=== PATIENT | female | born 1945 | race Caucasian/White ===

== ENCOUNTER → 2016-12-21 | Outpatient (CLI) | payer MEDICARE ==
--- NOTE | 2016-12-21 10:37 | WOMENS IMAGING REPORT ---
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 Additio nal selected color Doppler and spectral images recorded. LIMITATIONS: Midline bowel gas, large body habitus FINDINGS: PANCREAS: Not well visualized LIVER: Normal size, very difficult to penetrate with the ultrasound energy from fatty infiltration of the liver. LIVER VASCULATURE: Normal directional flow of the main portal vein and hepatic veins. GALLBLADDER: Distended. No gallstones. No gallbladder wall thickening or pericholecystic fluid. ULTRASOUND-DETECTED AHUJA'S SIGN: Negative. INTRAHEPATIC DUCTS AND COMMON DUCT: No intrahepatic biliary ductal dilatation. Common hepatic duct 2 .4 mm in diameter. Common bile duct difficult to visualize due to upper abdominal bowel gas. INFERIOR VENA CAVA: Hepatic vena cava difficult to visualize due to fatty infiltration of the liver AORTA: Not visualized RIGHT KIDNEY: 10 cm in length. No gross hydronephrosis PERITONEAL AND RIGHT PLEURAL SPACE: No ascites or effusions. OTHER: No other significant findings. IMPRESSION: Fatty infiltration of the liver. No gallstones TECHNICAL DOCUMENTATION: JOB ID: [id number] [employer]- All Rights Reserved
== END ==
LOC: WI 08:32
PROVIDERS: ATTEND Internal Medicine Gastroenterology
DX: K76.0 Fatty (change of) liver, not elsewhere classified (principal); R94.5 Abnormal results of liver function studies; Z79.899 Other long term (current) drug therapy
CPT/HCPCS: 76705

== ENCOUNTER 2017-06-04 09:48 | Inpatient (IN) | payer MEDICARE ==
--- NOTE | 2017-06-04 10:32 | ER Document Report ---
ED Medical Screen (RME) - General Mode of Arrival: Ambulatory Information source: Patient TRAVEL OUTSIDE OF THE [place] IN LAST 30 DAYS: No <MYRIAM SCHNEIDER - Last Filed: 06/04/17 10:42> <FOSTER JOHNSON - Last Filed: 06/04/17 13:20> <TARIQSHAUNA Anders - Last Filed: 06/04/17 20:09> - General Chief Complaint: Fall Injury Stated Complaint: FALL/LEFT ELBOW PAIN Time Seen by Provider: 06/04/17 10:22 Notes: Patient is a 71 year old female presenting to emergency department complaining of left sided head pain and left elbow pain after a mechanical fall onset this morning. Patient states she slipped and hit her head and elbow. Son states that the patient did not remember how she got to the emergency department. At bedside patient was alert and oriented x3, although son describes her behaviour as "loopy'. Patient denies any neck injury. I have greeted and performed a rapid initial assessment of this patient. A comprehensive ED assessment and evaluation of the patient, analysis of test results and completion of the medical decision making process will be conducted by additional ED providers. (MYRIAM SCHNEIDER) - Related Data Allergies/Adverse Reactions: amoxicillin [Amoxicillin] Allergy (Intermediate, Verified 06/04/17 09:52) nausea and vomiting iodine [Iodine] Allergy (Mild, Verified 06/04/17 09:52) rash Sulfa (Sulfonamide Antibiotics) Allergy (Mild, Verified 06/04/17 09:52) rash amlodipine besylate [From Norvasc] Allergy (Verified 06/04/17 09:52) unsure cefadroxil hydrate [From Duricef] Allergy (Verified 06/04/17 09:52) unsure doxycycline calcium [From Vibramycin] Allergy (Verified 06/04/17 09:52) unsure doxycycline hyclate [From Vibramycin] Allergy (Verified 06/04/17 09:52) unsure doxycycline monohydrate [From Vibramycin] Allergy (Verified 06/04/17 09:52) unsure hydrochlorothiazide [Hydrochlorothiazide] Allergy (Verified 06/04/17 09:52) unsure morphine [Morphine] Allergy (Verified 06/04/17 09:52) triamterene [From Dyazide] Allergy (Verified 06/04/17 09:52) unsure Past Medical History - Social History Chew tobacco use (# tins/day): No Frequency of alcohol use: Rare Drug Abuse: None - Past Medical History Cardiac Medical History: Reports: Hx Hypertension - CONTROLLED Denies: Hx Coronary Artery Disease, Hx Heart Attack Pulmonary Medical History: Reports: Hx Bronchitis Denies: Hx Asthma, Hx COPD, Hx Pneumonia Neurological Medical History: Denies: Hx Cerebrovascular Accident, Hx Seizures Endocrine Medical History: Denies: Hx Diabetes Mellitus Type 2 - Prediabetic Renal/ Medical History: Denies: Hx Peritoneal Dialysis GI Medical History: Denies: Hx Hepatitis, Hx Hiatal Hernia, Hx Ulcer Musculoskeltal Medical History: Reports Hx Arthritis Skin Medical History: Reports Hx Psoriasis Infectious Medical History: Denies: Hx Hepatitis Past Surgical History: Reports: Hx Hysterectomy. Denies: Hx Mastectomy, Hx Open Heart Surgery, Hx Pacemaker - Immunizations Hx Diphtheria, Pertussis, Tetanus Vaccination: No <MYRIAM SCHNEIDER - Last Filed: 06/04/17 10:42> - Social History Family history: None <SHAUNA POTTER - Last Filed: 06/04/17 20:09> Physical Exam <MYRIAM SCHNEIDER - Last Filed: 06/04/17 10:42> <FOSTER JOHNSON - Last Filed: 06/04/17 13:20> <SHAUNA POTTER - Last Filed: 06/04/17 20:09> - Vital signs Vitals: Temp Pulse Resp BP Pulse Ox 97.6 F 58 L 16 100/55 L 87 L 06/04/17 09:59 06/04/17 09:59 06/04/17 09:59 06/04/17 09:59 06/04/17 09:59 - Notes Notes: GENERAL: Alert, interacts well. No acute distress. HEAD: Swelling to the lateral aspect of the left side of the face which is also tender to palpation. EYES: Pupils equal, round, and reactive to light. Extraocular movements intact. ENT: Oral mucosa moist, tongue midline. NECK: Full range of motion. Supple. Trachea midline. LUNGS: Clear to auscultation bilaterally, no wheezes, rales, or rhonchi. No respiratory distress. HEART: Regular rate and rhythm. No murmurs, gallops, or rubs. ABDOMEN: Soft, non-tender. Non-distended. Bowel sounds present in all 4 quadrants. EXTREMITIES: Moves all 4 extremities spontaneously. tender to palpation to the left side of the elbow, soft tissue swelling. Able to move and lift BLE. NEUROLOGICAL: Alert and oriented x3. Normal speech. PSYCH: Normal affect, normal mood. SKIN: Warm, dry, normal turgor. No rashes or lesions noted. (MYRIAM SCHNEIDER) Course - Laboratory Result Diagrams: 06/04/17 12:13 06/04/17 12:13 - EKG Interpretation by Fl EKG shows normal: Sinus rhythm, [place], Intervals, QRS Complexes, ST-T Waves <FOSTER JOHNSON - Last Filed: 06/04/17 13:20> - Laboratory Result Diagrams: 06/04/17 12:13 06/04/17 12:13 <SHAUNA POTTER - Last Filed: 06/04/17 20:09> - Vital Signs Vital signs: Temp Pulse Resp BP Pulse Ox 97.8 F 82 16 147/82 H 98 06/04/17 17:49 06/04/17 17:49 06/04/17 17:49 06/04/17 17:49 06/04/17 17:49 - Laboratory Laboratory results interpreted by il: 06/04/17 06/04/17 06/04/17 12:13 12:13 12:17 RDW 16.3 H Seg Neutrophils % 82.7 H Lymphocytes % 11.1 L Chloride 108 H Est GFR (Non-Af Amer) 50 L Glucose 120 H Direct Bilirubin 0.5 H Urine Nitrite POSITIVE H Urine Urobilinogen 2.0 H Ur Leukocyte Esterase MODERATE H Doctor's Discharge <MYRIAM SCHNEIDER - Last Filed: 06/04/17 10:42> <FOSTER JOHNSON - Last Filed: 06/04/17 13:20> <SHAUNA POTTER - Last Filed: 06/04/17 20:09> - Discharge Clinical Impression: Fracture of left proximal ulna Qualifiers: Encounter type: initial encounter Fracture type: closed Fracture morphology: other fracture Qualified Code(s): S52.092A - Other fracture of upper end of left ulna, initial encounter for closed fracture Closed fracture of left proximal radius Qualifiers: Encounter type: initial encounter Fracture morphology: other fracture Qualified Code(s): S52.182A - Other fracture of upper end of left radius, initial encounter for closed fracture Closed head injury with concussion Qualifiers: Encounter type: initial encounter Loss of consciousness presence/duration: without LOC Qualified Code(s): S06.0X0A - Concussion without loss of consciousness, initial encounter Facial contusion Qualifiers: Encounter type: initial encounter Qualified Code(s): S00.83XA - Contusion of other part of head, initial encounter Condition: Good Disposition: ADMITTED INPATIENT Scribe Documentation - Scribe Written by Scribe:: Heena Valenzuela, 06/04/2017 10:41 acting as scribe for :: Long <MYRIAM SCHNEIDER - Last Filed: 06/04/17 10:42>
--- NOTE | 2017-06-04 11:04 | ER Document Report ---
ED Fall - General Chief Complaint: Fall Injury Stated Complaint: FALL/LEFT ELBOW PAIN Time Seen by Provider: 06/04/17 10:22 Mode of Arrival: Ambulatory Information source: Patient Notes: 71-year-old female to the emergency department status post fall. States that she was walking outside and slipped on the wet ground. Landed on her left side. Landed primarily on her left elbow but also hit her head. Was dazed and confused according to son. Has persistent nausea and vomiting at this time. Complaining of severe pain in the left elbow. Unable to move her left elbow. Denies any any pain in the neck, chest, back, hip. Denies syncopal episode states that she simply tripped and fell. TRAVEL OUTSIDE OF THE [place] IN LAST 30 DAYS: No - HPI Occurred: Just prior to arrival Where: Home Context: Tripped Associated symptoms: Dazed/confused - Related data Allergies/Adverse Reactions: amoxicillin [Amoxicillin] Allergy (Intermediate, Verified 06/04/17 09:52) nausea and vomiting iodine [Iodine] Allergy (Mild, Verified 06/04/17 09:52) rash Sulfa (Sulfonamide Antibiotics) Allergy (Mild, Verified 06/04/17 09:52) rash amlodipine besylate [From Norvasc] Allergy (Verified 06/04/17 09:52) unsure cefadroxil hydrate [From Duricef] Allergy (Verified 06/04/17 09:52) unsure doxycycline calcium [From Vibramycin] Allergy (Verified 06/04/17 09:52) unsure doxycycline hyclate [From Vibramycin] Allergy (Verified 06/04/17 09:52) unsure doxycycline monohydrate [From Vibramycin] Allergy (Verified 06/04/17 09:52) unsure hydrochlorothiazide [Hydrochlorothiazide] Allergy (Verified 06/04/17 09:52) unsure morphine [Morphine] Allergy (Verified 06/04/17 09:52) triamterene [From Dyazide] Allergy (Verified 06/04/17 09:52) unsure Past Medical History - General Information source: Patient - Social History Smoking Status: Former Smoker Chew tobacco use (# tins/day): No Frequency of alcohol use: Rare Drug Abuse: None Lives with: Family Family History: Reviewed & Not Pertinent Patient has suicidal ideation: No Patient has homicidal ideation: No - Past Medical History Cardiac Medical History: Reports: Hx Hypertension - CONTROLLED Denies: Hx Coronary Artery Disease, Hx Heart Attack Pulmonary Medical History: Reports: Hx Bronchitis Denies: Hx Asthma, Hx COPD, Hx Pneumonia Neurological Medical History: Denies: Hx Cerebrovascular Accident, Hx Seizures Endocrine Medical History: Denies: Hx Diabetes Mellitus Type 2 - Prediabetic Renal/ Medical History: Denies: Hx Peritoneal Dialysis GI Medical History: Denies: Hx Hepatitis, Hx Hiatal Hernia, Hx Ulcer Musculoskeltal Medical History: Reports Hx Arthritis Skin Medical History: Reports Hx Psoriasis Infectious Medical History: Denies: Hx Hepatitis Past Surgical History: Reports: Hx Hysterectomy. Denies: Hx Mastectomy, Hx Open Heart Surgery, Hx Pacemaker - Immunizations Hx Diphtheria, Pertussis, Tetanus Vaccination: No Review of Systems - Review of Systems Notes: Review of Systems Constitutional: denies: Chills, Diaphoresis, Fever, Malaise, Weakness. Remarkable for nausea EENT: Remarkable for pain on the left side of the face. Denies: Eye discharge , Blurred vision, Tearing, Double vision, Nose congestion, Nose discharge, Throat swelling, Mouth pain Cardiovascular: denies: Palpitations, Heart racing, Orthopnea, Dyspnea. denies : Chest pain Respiratory: denies: Cough, Hurts to breathe, Wheezing, Shortness of breath Gastrointestinal: denies: Abdominal pain, Diarrhea, Nausea, Vomiting, Black stools Genitourinary: denies: Burning, Dysuria, Discharge, Frequency, Flank pain, Hematuria Musculoskeletal: Remarkable for pain in the left elbow. Denies any hip pain, back pain or neck pain at this time. Hematologic/Lymphatic: denies: Anemia, Easy bleeding, Easy bruising, Blood clots Neurological/Psychological: Remarkable for confusion and nausea denies: Dementia, Depression, Lost consciousness Physical Exam - Vital signs Interpretation: Normal - General General appearance: Appears well, Alert - HEENT Head: Normocephalic, there are contusions noted to the left zygomatic arch with small abrasion. Eyes: Normal Pupils: PERRL - Respiratory Respiratory status: No respiratory distress Chest status: Nontender Breath sounds: Clear, no wheeze or rhonchi or rales Chest palpation: Normal - Cardiovascular Rhythm: Regular Heart sounds: Normal auscultation - The exception of occasional PVC. Murmur: No - Abdominal Inspection: Normal Distension: No distension Bowel sounds: Normal Tenderness: Nontender Organomegaly: No organomegaly - Back Back: Normal, Nontender but no obvious step-offs. - Extremities General upper extremity: The left upper extremity is remarkable for severe pain in the left elbow with bruising noted to the left elbow. Unable to range the elbow due to pain. Radius and ulnar pulses are intact. General lower extremity: Normal inspection, Nontender, Normal color, Normal ROM , Normal temperature, Normal weight bearing. No: Dionicio's sign - Neurological Neuro grossly intact: Yes Cognition: Normal Orientation: AAOx4 [place] Coma Scale Eye Opening: Spontaneous [place] Coma Scale Verbal: Oriented [place] Coma Scale Motor: Obeys Commands [place] Coma Scale Total: 15 Speech: Normal Motor strength normal: LUE, RUE, LLE, RLE Sensory: Normal - Psychological Associated symptoms: Normal affect, Normal mood - Skin Skin Temperature: Warm Skin Moisture: Dry Skin Color: Normal. Skin is remarkable for small abrasion noted to the left face under the zygomatic arch. Physical Exam - Vital signs Vitals: Temp Pulse Resp BP Pulse Ox 97.6 F 58 L 16 100/55 L 87 L 06/04/17 09:59 06/04/17 09:59 06/04/17 09:59 06/04/17 09:59 06/04/17 09:59 Course - Re-evaluation Re-evalutation: 06/04/17 12:04 CT of the head, face, cervical spine unremarkable for acute injury. X-rays of the left elbow reveal comminuted displaced proximal ulna fracture with radial head fracture as well. Significant amount of swelling. Pain is significant. Will consult with Dr. Blake Terry with orthopedic surgery as this is likely require more urgent intervention. 06/04/17 12:11 A message was left on Dr. Terry's cell phone as he is in the OR at this time. Message left at 11:55 AM. 06/04/17 12:[address] 06/04/17 10:26 IMPRESSION: CHRONIC DEGENERATIVE CHANGES. NO ACUTE FINDINGS. Elbow X-Ray 06/04/17 10:26 IMPRESSION: Somewhat limited study as noted above. Fractures of the proximal ulna and radius as noted above. Other findings as noted above Facial Bones CT 06/04/17 10:26 IMPRESSION: NO ACUTE FINDINGS. Head CT 06/04/17 10:26 IMPRESSION: MILD CHRONIC CHANGES OF ATROPHY AND MICROVASCULAR ISCHEMIA. NO ACUTE PROCESS. EVIDENCE OF ACUTE STROKE: NO. 06/04/17 13:[address] Blake Terry with orthopedic surgery. Will admit to his service at this time. Will place in a long splint. Get CT scan of the elbow and admit. 06/04/17 13:12 Long-arm splint placed. Upper extremity reevaluated status post splint placement. Neurovascularly intact. No complications. Patient tolerated procedure well. Will admit at this time for definitive treatment with orthopedic surgery - Vital Signs Vital signs: Temp Pulse Resp BP Pulse Ox 97.6 F 58 L 16 100/55 L 87 L 06/04/17 09:59 06/04/17 09:59 06/04/17 09:59 06/04/17 09:59 06/04/17 09:59 - Laboratory Result Diagrams: 06/04/17 12:13 06/04/17 12:13 Laboratory results interpreted by me: 06/04/17 06/04/17 06/04/17 12:13 12:13 12:17 RDW 16.3 H Seg Neutrophils % 82.7 H Lymphocytes % 11.1 L Chloride 108 H Est GFR (Non-Af Amer) 50 L Glucose 120 H Direct Bilirubin 0.5 H Urine Nitrite POSITIVE H Urine Urobilinogen 2.0 H Ur Leukocyte Esterase MODERATE H - EKG Interpretation by [place] EKG shows normal: Sinus rhythm, [place], Intervals, QRS Complexes, ST-T Waves Discharge - Discharge Clinical Impression: Fracture of left proximal ulna Qualifiers: Encounter type: initial encounter Fracture type: closed Fracture morphology: other fracture Qualified Code(s): S52.092A - Other fracture of upper end of left ulna, initial encounter for closed fracture Closed fracture of left proximal radius Qualifiers: Encounter type: initial encounter Fracture morphology: other fracture Qualified Code(s): S52.182A - Other fracture of upper end of left radius, initial encounter for closed fracture Closed head injury with concussion Qualifiers: Encounter type: initial encounter Loss of consciousness presence/duration: without LOC Qualified Code(s): S06.0X0A - Concussion without loss of consciousness, initial encounter Facial contusion Qualifiers: Encounter type: initial encounter Qualified Code(s): S00.83XA - Contusion of other part of head, initial encounter Condition: Good Disposition: ADMITTED INPATIENT Admitting Provider: Garland Terry Unit Admitted: Surgical Floor Referrals: SHAKILA RUBIN MD [Primary Care Provider] - Follow up as needed
[2017-06-04] MEDS ORDERED: ONDANSETRON HCL INJ/PF 4 MG/2 ML SDV IV ONE ×2 (11:16→13:42)
[2017-06-04] MEDS ORDERED: FENTANYL CITRATE INJ/PF 100 MCG/2 ML AMPUL IV PRN (11:17)
--- NOTE | 2017-06-04 11:18 | RADIOLOGY REPORT (SQ) ---
EXAM DESCRIPTION: CT HEAD WITHOUT COMPLETED DATE/TIME: 06/04/2017 10:55 am REASON FOR STUDY: fall COMPARISON: None. TECHNIQUE: Axial images acquired through the brain without intravenous contrast. Images reviewed wi th bone, brain and subdural windows. Images stored on PACS. All CT scanners at this facility use dose modulation, iterative reconstruction, and/or weight based d osing when appropriate to reduce radiation dose to as low as reasonably achievable (ALARA). [facility]: Dose Right [facility]: CareDose [facility]: Dose Right [facility]: Teradose 4D [facility]: Cell [employer] RADIATION DOSE: CT Rad equipment meets quality standard of care and radiation dose reduction techniq ues were employed. CTDIvol: 61.6 mGy. DLP: 1163 mGy-cm. mGy. LIMITATIONS: None. FINDINGS: VENTRICLES: Prominent. CEREBRUM: No masses. No hemorrhage. No midline shift. Areas of low density in the white matter mos t likely due to chronic micro-vascular ischemic change. No evidence for acute infarction. CEREBELLUM: No masses. No hemorrhage. No alteration of density. No evidence for acute infarction. EXTRAAXIAL SPACES: Mild age-related involutional change. No fluid collections. No masses. ORBITS AND GLOBE: No intra- or extraconal masses. Normal contour of globe without masses. CALVARIUM: No fracture. PARANASAL SINUSES: No fluid or mucosal thickening. SOFT TISSUES: No mass or hematoma. OTHER: No other significant finding. IMPRESSION: MILD CHRONIC CHANGES OF ATROPHY AND MICROVASCULAR ISCHEMIA. NO ACUTE PROCESS. EVIDENCE OF ACUTE STROKE: NO. TECHNICAL DOCUMENTATION: JOB ID: [id number] Quality ID # [id number]: Final reports with documentation of one or more dose reduction techniques (e.g., Au tomated exposure control, adjustment of the mA and/or kV according to patient size, use of iterative reconstruction technique) 2010 [employer]- All Rights Reserved
[2017-06-04] MEDS ORDERED: HYDROMORPHONE HCL INJ/PF 2 MG/ML AMPULE IV ONE ×2 (11:29→13:19)
--- NOTE | 2017-06-04 11:41 | RADIOLOGY REPORT (SQ) ---
EXAM DESCRIPTION: CT CERVICAL SPINE WITHOUT COMPLETED DATE/TIME: 06/04/2017 10:55 am REASON FOR STUDY: fall COMPARISON: None. TECHNIQUE: Axial images acquired through the cervical spine without intravenous contrast. Images re viewed with lung, soft tissue and bone windows. Reconstructed coronal and sagittal MPR images review ed. Images stored on PACS. All CT scanners at this facility use dose modulation, iterative reconstruction, and/or weight based d osing when appropriate to reduce radiation dose to as low as reasonably achievable (ALARA). [facility]: Dose Right [facility]: CareDose [facility]: Dose Right [facility]: Teradose 4D [facility]: Smart SpotRight RADIATION DOSE: CT Rad equipment meets quality standard of care and radiation dose reduction techniq ues were employed. CTDIvol: 25.1 mGy. DLP: 489 mGy-cm. mGy. LIMITATIONS: None. FINDINGS: ALIGNMENT: Anatomic. MINERALIZATION: Normal. VERTEBRAL BODIES: No fractures or dislocation. DISCS: Multilevel disc space narrowing with osteophytes. FACETS, LATERAL MASSES, POSTERIOR ELEMENTS: Facet arthropathy. No fractures. No dislocation. No ac tule river findings. HARDWARE: None in the spine. VISUALIZED RIBS: No fractures. LUNG APICES AND SOFT TISSUES: No significant or acute findings. OTHER: No other significant finding. IMPRESSION: CHRONIC DEGENERATIVE CHANGES. NO ACUTE FINDINGS. TECHNICAL DOCUMENTATION: JOB ID: [id number] Quality ID # [id number]: Final reports with documentation of one or more dose reduction techniques (e.g., Au tomated exposure control, adjustment of the mA and/or kV according to patient size, use of iterative reconstruction technique) 2010 [employer]- All Rights Reserved
--- NOTE | 2017-06-04 11:42 | RADIOLOGY REPORT (SQ) ---
EXAM DESCRIPTION: CT FACIAL AREA WITHOUT COMPLETED DATE/TIME: 06/04/2017 10:55 am REASON FOR STUDY: fall COMPARISON: None. TECHNIQUE: Noncontrasted images through the facial bones and orbits windowed for bone and soft tissu e. Additional coronal and sagittal reconstructed images reviewed. All images stored on PACS. All CT scanners at this facility use dose modulation, iterative reconstruction, and/or weight based d osing when appropriate to reduce radiation dose to as low as reasonably achievable (ALARA). [facility]: Dose Right [facility]: CareDose [facility]: Dose Right [facility]: Teradose 4D [facility]: [employer] RADIATION DOSE: CT Rad equipment meets quality standard of care and radiation dose reduction techniq ues were employed. CTDIvol: 30.4 mGy. DLP: 566 mGy-cm. mGy. LIMITATIONS: None. FINDINGS: FACIAL BONES: No fracture or bone lesion. ORBITS: Intact. No fracture. Symmetric intact globes and retroorbital soft tissues. PARANASAL SINUSES: Nasal septal deviation to the right. Clear. No significant mucosal thickening, mass or fluid. No nasal polyps. Maxillary sinus outlets are patent. SOFT TISSUES: No mass or edema. INFERIOR BRAIN: Limited view. No acute findings. OTHER: Hyperostosis frontalis interna. IMPRESSION: NO ACUTE FINDINGS. TECHNICAL DOCUMENTATION: JOB ID: [id number] Quality ID # [id number]: Final reports with documentation of one or more dose reduction techniques (e.g., Au tomated exposure control, adjustment of the mA and/or kV according to patient size, use of iterative reconstruction technique) 2010 [employer]- All Rights Reserved
[2017-06-04] MEDS ORDERED: OXYCODONE-ACETAMINOPHEN 5-325 MG TABLET PO ONE (11:49)
--- NOTE | 2017-06-04 12:17 | RADIOLOGY REPORT (SQ) ---
EXAM DESCRIPTION: ELBOW LEFT AP/LATERAL COMPLETED DATE/TIME: 06/04/2017 11:58 am REASON FOR STUDY: fall COMPARISON: None. NUMBER OF VIEWS: One view TECHNIQUE: Lateral radiographic images acquired of the left elbow. LIMITATIONS: Study is limited due to the patient's condition. FINDINGS: MINERALIZATION: Normal. BONES: There is a transverse fracture of the proximal radius at a comminuted fracture of the proximal ulna. JOINT: Joint effusion is identified. SOFT TISSUES: Soft tissue swelling is identified. OTHER: No other significant finding. IMPRESSION: Somewhat limited study as noted above. Fractures of the proximal ulna and radius as not ed above. Other findings as noted above TECHNICAL DOCUMENTATION: JOB ID: [id number] [employer]- All Rights Reserved
[2017-06-04 12:22] LABS: ABSOLUTE EOSINOPHILS # (AUTO) 0.1 10^3/uL (0.0-0.6); ABSOLUTE LYMPHOCYTES (AUTO) 0.9 10^3/uL (0.5-4.7); ABSOLUTE MONOCYTES (AUTO) 0.4 10^3/uL (0.1-1.4); ABSOLUTE NEUT (AUTO) 6.9 10^3/uL (1.7-8.2); BASOPHILS % (AUTO) 0.5 % (0-2); EOSINOPHILS % (AUTO) 1.4 % (0-6); HEMATOCRIT 37.4 % (36.0-47.0); HEMOGLOBIN 12.2 g/dL (12.0-15.5); LYMPHOCYTES % (AUTO) 11.1 % (13-45); MEAN CORPUSCULAR HEMOGLOBIN 29.9 pg (27.0-33.4); MEAN CORPUSCULAR HGB CONC 32.7 g/dL (32.0-36.0); MEAN CORPUSCULAR VOLUME 92 fl (80-97); MONOCYTES % (AUTO) 4.3 % (3-13); PLATELET COUNT 322 10^3/uL (150-450); RED BLOOD COUNT 4.08 10^6/uL (3.72-5.28); RED CELL DISTRIBUTION WIDTH 16.3 % (11.5-14.0); SEGMENTED NEUTROPHILS % (AUTO) 82.7 % (42-78); TOTAL CELLS COUNTED % (AUTO) 100 %; WHITE BLOOD COUNT 8.3 10^3/uL (4.0-10.5)
[2017-06-04 12:27] LABS: INTERNATIONAL RATION (INR) 0.89; PROTHROMBIN TIME 12.7 SEC (11.4-15.4)
[2017-06-04 12:28] LABS: PARTIAL THROMBOPLASTIN TIME 27.8 SEC (23.5-35.8)
[2017-06-04 12:41] LABS: ALANINE AMINOTRANSFERASE 35 U/L (9-52); ALBUMIN 4.1 g/dL (3.5-5.0); ALKALINE PHOSPHATASE 110 U/L (38-126); ANION GAP 6 (5-19); ASPARTATE AMINO TRANSFERASE 24 U/L (14-36); BILIRUBIN,DIRECT 0.5 mg/dL (0.0-0.4); BILIRUBIN,TOTAL 0.6 mg/dL (0.2-1.3); BLOOD UREA NITROGEN 20 mg/dL (7-20); CALCIUM 10.1 mg/dL (8.4-10.2); CARBON DIOXIDE 28 mmol/L (22-30); CHLORIDE 108 mmol/L (98-107); GLUCOSE 120 mg/dL (75-110); POTASSIUM 4.5 mmol/L (3.6-5.0); SODIUM 141.6 mmol/L (137-145); TOTAL PROTEIN 6.6 g/dL (6.3-8.2)
[2017-06-04] MEDS ORDERED: DEXTROSE 5%-1/2 NORMAL SALINE 1,000 ML IV ONE (12:48)
[2017-06-04 12:49] LABS: APPEARANCE,URINE SLIGHTLY-CLOUDY; BILIRUBIN,URINE NEGATIVE (NEGATIVE); COLOR,URINE YELLOW; GLUCOSE, URINE NEGATIVE (NEGATIVE); KETONES,URINE NEGATIVE (NEGATIVE); LEUKOCYTE ESTERASE,URINE MODERATE (NEGATIVE); NITRITE,URINE POSITIVE (NEGATIVE); PROTEIN,URINE NEGATIVE (NEGATIVE)
--- NOTE | 2017-06-04 13:00 | EKG REPORT ---
SEVERITY:- NORMAL ECG - SINUS RHYTHM : Confirmed by: Jayce Cordova MD 04-Jun-2017 13:00:23
[2017-06-04] MEDS ORDERED: ONDANSETRON HCL INJ/PF 4 MG/2 ML SDV ONE (13:43)
--- NOTE | 2017-06-04 14:58 | RADIOLOGY REPORT (SQ) ---
EXAM DESCRIPTION: CT LT UPPER EXTREMITY WITHOUT COMPLETED DATE/TIME: 06/04/2017 1:54 pm REASON FOR STUDY: Left elbow fracture COMPARISON: Left elbow plain films 06/04/2017 TECHNIQUE: Axial imaging performed through the left elbow with reformatted coronal and sagittal imag ing windowed for bone and soft tissues. Images saved to PACS. 3D IMAGING: Were 3D images as MIP, SSD, or volume rendering performed at the work station? Yes All CT scanners at this facility use dose modulation, iterative reconstruction, and/or weight based d osing when appropriate to reduce radiation dose to as low as reasonably achievable (ALARA). [facility]: Dose Right [facility]: CareDose [facility]: Dose Right [facility]: Teradose 4D [facility]: [employer] LIMITATIONS: Please note Pat the patient was scanned with her left elbow and arm over her belly. Th ere is streak artifact from large body habitus, and limited fine bony detail. Shaded surface display images are nondiagnostic RADIATION DOSE: CT Rad equipment meets quality standard of care and radiation dose reduction techniq ues were employed. CTDIvol: 2.6 mGy. DLP: 175 mGy-cm. mGy. FINDINGS: Bones are osteopenic. There is beam hardening artifact from the patient's size. A definite comminuted ulna fracture is evident, with fracture lines coursing through the olecranon in to the elbow joint space. This is nonangulated and minimal dorsal displacement of the left proximal ulnar diaphysis is seen with respect to the coronoid process and olecranon. On the CT exam the radial head is very difficult to visualize. Grossly normal proximal radioulnar an d proximal ulnohumeral joints. The distal humerus is grossly intact. Today's single lateral left elbow x-ray demonstrates the comminuted proximal left ulna fracture. IMPRESSION: Comminuted left proximal ulna fracture with intra-articular extension. No dislocation o r subluxation of the ulnohumeral joint Otherwise, very limited negative study TECHNICAL DOCUMENTATION: JOB ID: [id number] Quality ID # [id number]: Final reports with documentation of one or more dose reduction techniques (e.g., Au tomated exposure control, adjustment of the mA and/or kV according to patient size, use of iterative reconstruction technique) 2010 [employer]- All Rights Reserved
--- NOTE | 2017-06-04 16:39 | PDOC H&P ---
History of Present Illness Admission Date/PCP: 06/04/17 14:34 SHAKILA RUBIN MD Patient complains of: Left arm pain History of Present Illness: BURKE GAITAN is a 71 year old female who fell and sustained left facial trauma and a left elbow injury. She was evaluated in the emergency room where a left Monteggia fracture is identified. Orthopedics is consulted for fracture management. Past Medical History Cardiac Medical History: Reports: Hypertension - CONTROLLED Denies: Coronary Artery Disease, Myocardial Infarction Pulmonary Medical History: Reports: Bronchitis Denies: Asthma, Chronic Obstructive Pulmonary Disease (COPD), Pneumonia Neurological Medical History: Denies: Seizures Endocrine Medical History: Denies: Diabetes Mellitus Type 2 - Prediabetic GI Medical History: Denies: Hepatitis, Hiatal Hernia Musculoskeltal Medical History: Reports: Arthritis Skin Medical History: Reports: Psoriasis Hematology: Denies: Anemia, Sickle Cell Disease Past Surgical History Past Surgical History: Reports: Hysterectomy Denies: Amputation, Mastectomy, Pacemaker Social History Information Source: Patient, Dr. Mccarthy, [facility] Records Lives with: Family Smoking Status: Former Smoker Family History Family History: Reviewed & Not Pertinent Parental Family History Reviewed: No Children Family History Reviewed: No Sibling(s) Family History Reviewed.: No Medication/Allergy Home Medications: Carvedilol [Coreg 12.5 mg Tablet] 12.5 mg PO Q12 06/04/17 Cyanocobalamin (Vitamin B-12) [Vitamin B-12 1000 Mcg Tablet] 1 tab PO DAILY Fluconazole [Diflucan] 150 mg PO WE@06/04/17 Folic Acid [Folvite 1 mg Tablet] 1 mg PO QHS 06/04/17 Glipizide [Glucotrol Xl 5 mg Tab.er] 5 mg PO QAM 06/04/17 Hydroxyzine Pamoate [Vistaril 25 mg Capsule] 25 mg PO HSP PRN 06/04/17 Meloxicam [Mobic] 7.5 mg PO BID 06/04/17 Methotrexate Sodium [Methotrexate] 15 mg PO WE@06/04/17 Multivitamin [Multiple Vitamins] 1 each PO DAILY 06/04/17 Nystatin [Mycostatin Cream] 1 applic TP DAILYP PRN 06/04/17 Valsartan [Diovan 160 mg Tablet] 160 mg PO Q12 06/04/17 Allergies/Adverse Reactions: amoxicillin [Amoxicillin] Allergy (Intermediate, Verified 06/04/17 09:52) nausea and vomiting iodine [Iodine] Allergy (Mild, Verified 06/04/17 09:52) rash Sulfa (Sulfonamide Antibiotics) Allergy (Mild, Verified 06/04/17 09:52) rash amlodipine besylate [From Norvasc] Allergy (Verified 06/04/17 09:52) unsure cefadroxil hydrate [From Duricef] Allergy (Verified 06/04/17 09:52) unsure doxycycline calcium [From Vibramycin] Allergy (Verified 06/04/17 09:52) unsure doxycycline hyclate [From Vibramycin] Allergy (Verified 06/04/17 09:52) unsure doxycycline monohydrate [From Vibramycin] Allergy (Verified 06/04/17 09:52) unsure hydrochlorothiazide [Hydrochlorothiazide] Allergy (Verified 06/04/17 09:52) unsure morphine [Morphine] Allergy (Verified 06/04/17 09:52) triamterene [From Dyazide] Allergy (Verified 06/04/17 09:52) unsure Review of Systems All systems: as per H Physical Exam Vital Signs: Temp Pulse Resp BP Pulse Ox 36.4 C 58 L 16 100/55 L 87 L 06/04/17 09:59 06/04/17 09:59 06/04/17 09:59 06/04/17 09:59 06/04/17 09:59 Physical Exam: The patient is an overweight if not obese middle-aged white female lying in [facility] accompanied by her son. She is in minor distress. Left upper extremity is immobilized in a splint and a shoulder sling. General appearance: PRESENT: mild distress Head exam: PRESENT: normocephalic Respiratory exam: PRESENT: unlabored Cardiovascular exam: PRESENT: RRR Pulses: PRESENT: normal radial pulses Vascular exam: PRESENT: normal capillary refill GI/Abdominal exam: PRESENT: soft Rectal exam: PRESENT: deferred Extremities exam: PRESENT: other - Left upper extremity is immobilized in a splint and a shoulder sling. Neurovascular examination of the hand is intact. Neurological exam: PRESENT: alert, awake, oriented to person, oriented to place , oriented to time, oriented to situation. ABSENT: motor sensory deficit Psychiatric exam: PRESENT: appropriate affect, normal mood. ABSENT: homicidal ideation, suicidal ideation Skin exam: PRESENT: dry, intact, warm. ABSENT: cyanosis, rash Results Impressions: Cervical Spine CT 06/04/17 10:26 IMPRESSION: CHRONIC DEGENERATIVE CHANGES. NO ACUTE FINDINGS. Elbow X-Ray 06/04/17 10:26 IMPRESSION: Somewhat limited study as noted above. Fractures of the proximal ulna and radius as noted above. Other findings as noted above Facial Bones CT 06/04/17 10:26 IMPRESSION: NO ACUTE FINDINGS. Head CT 06/04/17 10:26 IMPRESSION: MILD CHRONIC CHANGES OF ATROPHY AND MICROVASCULAR ISCHEMIA. NO ACUTE PROCESS. EVIDENCE OF ACUTE STROKE: NO. Upper Extremity CT 06/04/17 13:10 IMPRESSION: Comminuted left proximal ulna fracture with intra-articular extension. No dislocation or subluxation of the ulnohumeral joint Otherwise, very limited negative study Status: Imported from PACS Assessment & Plan - Diagnosis (1) Left Monteggia fracture Qualifiers: Encounter type: initial encounter Fracture type: closed Qualified Code(s) : S52.272A - Monteggia's fracture of left ulna, initial encounter for closed fracture Is this a current diagnosis for this admission?: Yes Plan: 71-year-old white female with a left Monteggia fracture. Plan will be for admission to the orthopedic service overnight and proceed with an open reduction internal fixation in the morning. - Time Time Spent: 50 to 70 Minutes Anticipated discharge: Home with Homehealth Within: within 24 hours
[2017-06-04] MEDS ORDERED: ONDANSETRON 4 MG TAB.RAPDIS SL PRN (18:02)
[2017-06-04] MEDS ORDERED: ONDANSETRON HCL INJ/PF 4 MG/2 ML SDV IV PRN (18:02)
[2017-06-04] MEDS ORDERED: MORPHINE SULFATE 10 MG/ML INJ IV PRN (18:02)
[2017-06-04] MEDS ORDERED: HYDROMORPHONE HCL INJ/PF 2 MG/ML AMPULE IV PRN (19:27)
[2017-06-04] MEDS: HYDROMORPHONE HCL INJ/PF 2 MG/ML AMPULE IV PRN (22:00)
[2017-06-05] MEDS: RINGERS SOLUTION,LACTATED 1,000 ML IV PRN ×2 (00:24→07:52)
[2017-06-05] MEDS: HYDROMORPHONE HCL INJ/PF 2 MG/ML AMPULE IV PRN ×3 (00:24→04:47)
[2017-06-05 07:38] LABS: HEMATOCRIT 33.9 % (36.0-47.0); MEAN CORPUSCULAR HEMOGLOBIN 29.9 pg (27.0-33.4); MEAN CORPUSCULAR HGB CONC 32.4 g/dL (32.0-36.0); MEAN CORPUSCULAR VOLUME 92 fl (80-97); PLATELET COUNT 286 10^3/uL (150-450); RED BLOOD COUNT 3.68 10^6/uL (3.72-5.28); RED CELL DISTRIBUTION WIDTH 16.6 % (11.5-14.0); WHITE BLOOD COUNT 8.8 10^3/uL (4.0-10.5)
[2017-06-05 07:46] LABS: ANION GAP 7 (5-19); BLOOD UREA NITROGEN 22 mg/dL (7-20); CALCIUM 9.9 mg/dL (8.4-10.2); CARBON DIOXIDE 26 mmol/L (22-30); CHLORIDE 108 mmol/L (98-107); GLUCOSE 117 mg/dL (75-110); POTASSIUM 4.1 mmol/L (3.6-5.0); SODIUM 140.9 mmol/L (137-145)
[2017-06-05] MEDS ORDERED: SUCCINYLCHOLINE CHLORIDE INJ 200 MG/10 ML VIAL ONE (08:10)
[2017-06-05] MEDS ORDERED: FENTANYL CITRATE INJ/PF 100 MCG/2 ML AMPUL ONE (11:50)
[2017-06-05] MEDS ORDERED: DEXAMETHASONE SOD PHOSPHATE INJ 4 MG/1 ML VIAL ONE (11:50)
[2017-06-05] MEDS ORDERED: PROPOFOL INJ 200 MG/20 ML VIAL IV ONE (11:50)
[2017-06-05] MEDS ORDERED: MIDAZOLAM 2 MG/2 ML INJ ONE (11:50)
[2017-06-05] MEDS ORDERED: ONDANSETRON HCL INJ/PF 4 MG/2 ML SDV ONE ×2 (11:50→15:34)
[2017-06-05] MEDS ORDERED: CLINDAMYCIN 600 MG/D5W RTU 600 MG/50 ML RTUPB IV ONE (11:51)
[2017-06-05] MEDS ORDERED: HYDROMORPHONE HCL INJ/PF 2 MG/ML AMPULE ONE (11:51)
[2017-06-05] MEDS ORDERED: ACETAMINOPHEN 100 ML IV ONE (11:51)
[2017-06-05] MEDS ORDERED: FENTANYL CITRATE INJ/PF 100 MCG/2 ML AMPUL IV PRN ×3 (12:59)
[2017-06-05] MEDS ORDERED: DIPHENHYDRAMINE HCL 50 MG/ML VIAL IV PRN (12:59)
[2017-06-05] MEDS ORDERED: PROMETHAZINE HCL INJ 25 MG/1 ML VIAL IV PRN (12:59)
[2017-06-05] MEDS ORDERED: MORPHINE SULFATE 10 MG/ML INJ IV PRN (12:59)
[2017-06-05] MEDS ORDERED: MEPERIDINE HCL/PF INJ 25 MG/1 ML DISP.SYRIN IV PRN (12:59)
[2017-06-05] MEDS ORDERED: TRANEXAMIC ACID INJ/PF 1,000 MG/10 ML SDV IV ONE ×3 (13:35→15:00)
--- NOTE | 2017-06-05 13:47 | Operative Report ---
Operative Report DATE OF SURGERY: 06/05/17 PREOPERATIVE DIAGNOSIS: Left Monteggia fracture OPERATION: Radial head replacement. Open reduction internal fixation of ulnar fracture. Ulnar neural lysis SURGEON: JOANIE CEVALLOS ANESTHESIA: GA ESTIMATED BLOOD LOSS: 75 PROCEDURE: With the patient in a right lateral decubitus position on the operating table the left upper extremities prepped and draped in a sterile fashion. A longitudinal incision made just to the radial side of the olecranon and proximal ulna. Sharp dissection used to carry incision down to the ulna. Soft tissues cleared off the radial side of the ulna to expose the underlying radial head fracture. The radial head is removed in total. The proximal radius is then prepared for radial head replacement from Acumed 22 x 10 mm. A trial was left in place. Attention is now turned to the proximal ulna fracture. An Acumed plate is applied and used to reduce the fracture by bringing the bone fragments to the plate. It secured distally with 4 screws and proximally with 3 screws. In the process of anchoring the central portion of the plate the coronoid fracture is reduced in its held in place using interfragmentary fixation. The trial radial head is then removed and replaced with the permanent implant. Radiographs obtained in 2 planes as well as with pronation and supination. There is a concentric reduction of the radial head and appears to be an anatomic reduction of the ulna. The tourniquet is deflated. Hemostasis of obtained with electrocautery. The wound is irrigated and closed using interrupted Ethibond, Vicryl, and sara. A sterile compressive dressing and posterior plaster splint were applied and the patient's return to the PACU in satisfactory condition.
[2017-06-05] MEDS ORDERED: HYDROMORPHONE HCL INJ/PF 2 MG/ML AMPULE IV PRN (14:26)
--- NOTE | 2017-06-05 15:36 | RADIOLOGY REPORT (SQ) ---
EXAM DESCRIPTION: NO CHG FLUORO; ELBOW LEFT AP/LATERAL COMPLETED DATE/TIME: 06/05/2017 3:00 pm REASON FOR STUDY: ORIF LEFT ELBOW ASST WITH FLUORO IN OR COMPARISON: None. FLUOROSCOPY TIME: 0.8 minutes 4 images saved to PACS. TECHNIQUE: Intra-operative images acquired during surgical procedure to evaluate progress. NUMBER OF IMAGES: 4 LIMITATIONS: None. FINDINGS: Plate and screw fixation fracture proximal ulna. Prosthetic radial head. Alignment is an atomic. IMPRESSION: IMAGE(S) OBTAINED DURING PROCEDURE. COMMENT: Quality ID 145: Final reports for procedures using fluoroscopy that document radiation exp osure indices, or exposure time and number of fluorographic images (if radiation exposure indices are not available) Please consult full operative report of the attending physician for description of the procedure. TECHNICAL DOCUMENTATION: JOB ID: [id number] [employer]- All Rights Reserved
--- NOTE | 2017-06-05 15:36 | RADIOLOGY REPORT (SQ) ---
EXAM DESCRIPTION: NO CHG FLUORO; ELBOW LEFT AP/LATERAL COMPLETED DATE/TIME: 06/05/2017 3:00 pm REASON FOR STUDY: ORIF LEFT ELBOW ASST WITH FLUORO IN OR COMPARISON: None. FLUOROSCOPY TIME: 0.8 minutes 4 images saved to PACS. TECHNIQUE: Intra-operative images acquired during surgical procedure to evaluate progress. NUMBER OF IMAGES: 4 LIMITATIONS: None. FINDINGS: Plate and screw fixation fracture proximal ulna. Prosthetic radial head. Alignment is an atomic. IMPRESSION: IMAGE(S) OBTAINED DURING PROCEDURE. COMMENT: Quality ID 145: Final reports for procedures using fluoroscopy that document radiation exp osure indices, or exposure time and number of fluorographic images (if radiation exposure indices are not available) Please consult full operative report of the attending physician for description of the procedure. TECHNICAL DOCUMENTATION: JOB ID: [id number] [employer]- All Rights Reserved
[2017-06-05] MEDS: NALOXONE HCL INJ/PF 0.4 MG/1 ML SDV ONE ×2 (16:15→16:20)
[2017-06-05] MEDS ORDERED: NYSTATIN CREAM 15 GM TP PRN (17:36)
[2017-06-05] MEDS ORDERED: HYDROXYZINE PAMOATE 25 MG CAPSULE PO PRN (17:36)
[2017-06-05] MEDS: CLINDAMYCIN 600 MG/D5W RTU 600 MG/50 ML RTUPB IV SCH (21:18)
[2017-06-05] MEDS: VALSARTAN 160 MG TABLET PO SCH (21:18)
[2017-06-05] MEDS: CARVEDILOL 12.5 MG TABLET PO SCH (21:18)
[2017-06-05] MEDS: MELOXICAM 7.5 MG TABLET PO SCH (21:19)
[2017-06-05] MEDS ORDERED: FOLIC ACID 1 MG TABLET PO SCH (22:00)
[2017-06-06] MEDS: OXYCODONE HCL IR 5 MG TABLET PO PRN ×2 (02:14→08:53)
[2017-06-06] MEDS: CLINDAMYCIN 600 MG/D5W RTU 600 MG/50 ML RTUPB IV SCH (05:23)
[2017-06-06 06:34] LABS: HEMOGLOBIN 9.4 g/dL (12.0-15.5); MEAN CORPUSCULAR HEMOGLOBIN 29.6 pg (27.0-33.4); MEAN CORPUSCULAR HGB CONC 32.4 g/dL (32.0-36.0); MEAN CORPUSCULAR VOLUME 91 fl (80-97); PLATELET COUNT 244 10^3/uL (150-450); RED BLOOD COUNT 3.17 10^6/uL (3.72-5.28); RED CELL DISTRIBUTION WIDTH 16.2 % (11.5-14.0); WHITE BLOOD COUNT 15.6 10^3/uL (4.0-10.5)
--- NOTE | 2017-06-06 06:43 | PDOC DISCHARGE SUMMARY ---
General - Admit/Disc Date/PCP Admission Date/Primary Care Provider: 06/04/17 14:34 SHAKILA RUBIN MD Discharge Date: 06/06/17 - Discharge Diagnosis (1) Left Monteggia fracture Is this a current diagnosis for this admission?: Yes - Additional Information Resuscitation Status: Full Code Discharge Diet: As Tolerated, Regular Discharge Activity: Activity As Tolerated, No tub bath Home Medications: Carvedilol [Coreg 12.5 mg Tablet] 12.5 mg PO Q12 06/04/17 Cyanocobalamin (Vitamin B-12) [Vitamin B-12 1000 Mcg Tablet] 1 tab PO DAILY Fluconazole [Diflucan] 150 mg PO WE@06/04/17 Folic Acid [Folvite 1 mg Tablet] 1 mg PO QHS 06/04/17 Glipizide [Glucotrol Xl 5 mg Tab.er] 5 mg PO QAM 06/04/17 Hydroxyzine Pamoate [Vistaril 25 mg Capsule] 25 mg PO HSP PRN 06/04/17 Meloxicam [Mobic] 7.5 mg PO BID 06/04/17 Methotrexate Sodium [Methotrexate] 15 mg PO WE@10 06/04/17 Multivitamin [Multiple Vitamins] 1 each PO DAILY 06/04/17 Nystatin [Mycostatin Cream] 1 applic TP DAILYP PRN 06/04/17 Valsartan [Diovan 160 mg Tablet] 160 mg PO Q12 06/04/17 History of Present Illness History of Present Illness: BURKE GAITAN is a 71 year old female who suffered a left Monteggia fracture who was admitted to the ER. She underwent open reduction internal fixation of left ulnar fracture, left radial head replacement as well as ulnar nerve lysis. Hospital Course Hospital Course: 71-year-old white female who presented to the emergency department on May with a left Monteggia fracture. She was admitted to the hospital and later underwent open reduction internal fixation of left ulnar fracture, left radial head replacement and ulnar nerve lysis. She was taken to PACU in satisfactory condition. She was then transferred to the surgical floor where she was seen by nursing staff as well as Dr. Terry for pain control. She will be discharged to her home today home health nursing and Occupational Therapy. Physical Exam Vital Signs: Temp Pulse Resp BP Pulse Ox 36.9 C 90 16 90/58 L 94 02/01/18 04:01 06/06/17 04:01 06/06/17 04:01 06/06/17 04:01 06/06/17 04:01 Intake & Output 06/04/17 06/05/17 06/06/17 06:59 06:59 06:59 Intake Total 480 4400 Output Total 425 325 Balance 55 4075 General appearance: PRESENT: no acute distress, well-developed, well-nourished Head exam: PRESENT: atraumatic, normocephalic Respiratory exam: PRESENT: unlabored Pulses: PRESENT: normal dorsalis pedis pul, +2 pedal pulses bilateral Additional comments: Patient lying recumbent in hospital bed with left upper extremity in a long-arm splint elevated on multiple pillows. She notes numbness and tingling to fingers on the dorsum of the left hand. She has mild manual edema however there is brisk capillary refill to fingers on bilateral upper extremities. Her postoperative splint is clean dry and intact. And this is left in place. She has some tenderness to palpation. She has limited strength range of motion and her distal neurovascular exam is intact. Musculoskeletal exam: PRESENT: ambulatory, tenderness Additional comments: Patient's left upper extremity has been placed in a postoperative upper extremity splint, and at this point she has very limited strength range of motion of left upper extremity. Patient will likely benefit from occupational therapy to increase strength and range of motion of left upper extremity. Therefore she will be sent home with home occupational therapy. Neurological exam: PRESENT: alert, awake, oriented to person, oriented to place , oriented to time, oriented to situation, CN II-XII grossly intact. ABSENT: motor sensory deficit Psychiatric exam: PRESENT: appropriate affect, normal mood. ABSENT: homicidal ideation, suicidal ideation Skin exam: PRESENT: dry, intact, warm. ABSENT: cyanosis, rash Results Laboratory Results: 06/05/17 06/05/17 07:24 07:24 WBC 8.8 RBC 3.68 L Hgb 11.0 L Hct 33.9 L MCV 92 MCH 29.9 MCHC 32.4 RDW 16.6 H Plt Count 286 Sodium 140.9 Potassium 4.1 Chloride 108 H Carbon Dioxide 26 Anion Gap 7 BUN 22 H Creatinine 1.05 Est GFR ( Amer) > 60 Est GFR (Non-Af Amer) 52 L Glucose 117 H Calcium 9.9 Impressions: Cervical Spine CT 06/04/17 10:26 IMPRESSION: CHRONIC DEGENERATIVE CHANGES. NO ACUTE FINDINGS. Facial Bones CT 06/04/17 10:26 IMPRESSION: NO ACUTE FINDINGS. Head CT 06/04/17 10:26 IMPRESSION: MILD CHRONIC CHANGES OF ATROPHY AND MICROVASCULAR ISCHEMIA. NO ACUTE PROCESS. EVIDENCE OF ACUTE STROKE: NO. Upper Extremity CT 06/04/17 13:10 IMPRESSION: Comminuted left proximal ulna fracture with intra-articular extension. No dislocation or subluxation of the ulnohumeral joint Otherwise, very limited negative study Elbow X-Ray 06/05/17 00:00 IMPRESSION: IMAGE(S) OBTAINED DURING PROCEDURE. Fluoroscopy 06/05/17 00:00 IMPRESSION: IMAGE(S) OBTAINED DURING PROCEDURE. Plan Discharge Plan: 71-year-old white female one day status post open reduction internal fixation of proximal ulnar fracture, left radial head replacement as well as ulnar nerve lysis of the left upper extremity. Patient's left upper extremity is in postoperative long-arm splint and this remains clean dry and intact. This will remain in place until she is seen at [facility] for surgery for her postoperative appointment. She will be sent home today with home health nursing and Occupational Therapy. She will work with home occupational therapy to improve strength range of motion of left upper extremity. As noted she will follow-up with [facility] for surgery with Dr. Terry 2 weeks postoperatively for reevaluation and staple removal. Time Spent: Less than 30 Minutes
[2017-06-06 06:54] LABS: ANION GAP 5 (5-19); BLOOD UREA NITROGEN 20 mg/dL (7-20); CALCIUM 9.3 mg/dL (8.4-10.2); CARBON DIOXIDE 26 mmol/L (22-30); CHLORIDE 107 mmol/L (98-107); GLUCOSE 98 mg/dL (75-110); POTASSIUM 4.2 mmol/L (3.6-5.0); SODIUM 137.8 mmol/L (137-145)
[2017-06-06] MEDS ORDERED: GLIPIZIDE XL 5 MG TAB.ER.24 PO SCH (08:00)
[2017-06-06 08:20] VITALS: BP 149/64
[2017-06-06] MEDS ORDERED: METHOTREXATE SODIUM 2.5 MG TABLET PO ONE (09:00)
[2017-06-06] MEDS: CARVEDILOL 12.5 MG TABLET PO SCH (09:17)
[2017-06-06] MEDS: VALSARTAN 160 MG TABLET PO SCH (09:17)
[2017-06-06] MEDS: MELOXICAM 7.5 MG TABLET PO SCH (09:17)
[2017-06-06] MEDS ORDERED: MULTIVITAMIN TABLET PO SCH (10:00)
[2017-06-06] MEDS ORDERED: CYANOCOBALAMIN (VITAMIN B-12) 1,000 MCG TABLET PO SCH (10:00)
[2017-06-12] MEDS ORDERED: METHOTREXATE SODIUM 2.5 MG TABLET PO SCH (10:00)
[2017-06-12] MEDS ORDERED: FLUCONAZOLE 100 MG TABLET PO SCH (10:00)
[2017-06-12] MEDS ORDERED: (PENDING PHARMACY ID) (Fluconazole [Diflucan] 150 MG) PO SCH (10:00)
== END 2017-06-06 09:20 | disposition home health service (06) | DRG 483 ==
LOC: ER 09:48 → EH 14:34 → 4S 17:10
PROVIDERS: ADMIT Orthopaedic Surgery; ATTEND Orthopaedic Surgery
PROC: 0PSL04Z Reposition Left Ulna with Internal Fixation Device, Open Approach (ICD-10-PCS; 2017-06-05)
PROC: 01N40ZZ Release Ulnar Nerve, Open Approach (ICD-10-PCS; 2017-06-05)
PROC: 0RRM0JZ Replacement of Left Elbow Joint with Synthetic Substitute, Open Approach (ICD-10-PCS; principal; 2017-06-05 11:30)
DX: S52.272A Monteggia's fracture of left ulna, initial encounter for closed fracture (principal); Z68.41 Body mass index [BMI] 40.0-44.9, adult; S06.0X0A Concussion without loss of consciousness, initial encounter; S00.83XA Contusion of other part of head, initial encounter; W01.0XXD Fall on same level from slipping, tripping and stumbling without subsequent striking against object, subsequent encounter; Y92.017 Garden or yard in single-family (private) house as the place of occurrence of the external cause; I10 Essential (primary) hypertension; M19.90 Unspecified osteoarthritis, unspecified site; L40.9 Psoriasis, unspecified; E66.3 Overweight; I49.3 Ventricular premature depolarization; Z90.710 Acquired absence of both cervix and uterus; Z87.891 Personal history of nicotine dependence; Z79.899 Other long term (current) drug therapy; Z88.1 Allergy status to other antibiotic agents; Z88.2 Allergy status to sulfonamides; Z88.8 Allergy status to other drugs, medicaments and biological substances; Z88.6 Allergy status to analgesic agent
CPT/HCPCS: 01740; 36415; 70450; 70486; 72125; 80048; 80053; 81001; 85025; 85027; 85610; 85730; 93005; 93010; 96361; 96374; 96375; 96376; 99285; C1769; J0131; J0330; J1100; J1170; J2250; J2310; J2405; J2704; J3010; J3490; J7120; S0119

== ENCOUNTER 2018-04-16 09:01 | Day surgery (SDC) | payer MEDICARE ==
[2018-03-26 10:46] LABS: HEMATOCRIT 36.5 % (36.0-47.0); MEAN CORPUSCULAR HEMOGLOBIN 29.3 pg (27.0-33.4); MEAN CORPUSCULAR HGB CONC 32.8 g/dL (32.0-36.0); MEAN CORPUSCULAR VOLUME 89 fl (80-97); PLATELET COUNT 297 10^3/uL (150-450); RED BLOOD COUNT 4.09 10^6/uL (3.72-5.28); RED CELL DISTRIBUTION WIDTH 18.3 % (11.5-14.0); WHITE BLOOD COUNT 6.6 10^3/uL (4.0-10.5)
[2018-03-26 11:07] LABS: ANION GAP 10 (5-19); BLOOD UREA NITROGEN 21 mg/dL (7-20); CALCIUM 9.7 mg/dL (8.4-10.2); CARBON DIOXIDE 27 mmol/L (22-30); CHLORIDE 105 mmol/L (98-107); GLUCOSE 88 mg/dL (75-110); POTASSIUM 4.6 mmol/L (3.6-5.0); SODIUM 142.3 mmol/L (137-145)
[2018-03-26 11:11] LABS: APPEARANCE,URINE CLEAR; BILIRUBIN,URINE NEGATIVE (NEGATIVE); COLOR,URINE YELLOW; GLUCOSE, URINE NEGATIVE (NEGATIVE); KETONES,URINE NEGATIVE (NEGATIVE); LEUKOCYTE ESTERASE,URINE TRACE (NEGATIVE); NITRITE,URINE NEGATIVE (NEGATIVE); PROTEIN,URINE NEGATIVE (NEGATIVE); URINE SPECIFIC GRAVITY 1.014; UROBILINOGEN,URINE NEGATIVE mg/dL (<2.0)
--- NOTE | 2018-03-26 15:46 | EKG REPORT ---
SEVERITY:- NORMAL ECG - SINUS RHYTHM : Confirmed by: Helene Royal MD 26-Mar-2018 15:45:26
[~2018-04-16 09:01] MED LIST: CEFAZOLIN 2 GM/D5W RTU 2 GM/50 ML RTUPB IV PRN; LACTATED RINGERS 1000 ML IV PRN; LIDOCAINE 0.5% INJ-PF (5 MG/ML) 50 ML SDV SUBCUT PRN
[2018-04-16] MEDS ORDERED: CEFAZOLIN 2 GM/D5W RTU 2 GM/50 ML RTUPB IV ONE (09:38)
[2018-04-16] MEDS ORDERED: ONDANSETRON HCL INJ/PF 4 MG/2 ML SDV ONE (11:19)
[2018-04-16] MEDS ORDERED: PROPOFOL INJ 200 MG/20 ML VIAL IV ONE (11:19)
[2018-04-16] MEDS ORDERED: FENTANYL CITRATE INJ/PF 100 MCG/2 ML AMPUL ONE ×2 (11:19→11:50)
[2018-04-16] MEDS ORDERED: MIDAZOLAM 2 MG/2 ML INJ ONE (11:19)
--- NOTE | 2018-04-16 12:08 | Operative Report ---
Operative Report DATE OF SURGERY: 04/16/18 PREOPERATIVE DIAGNOSIS: Retained hardware status post ORIF of a left Monteggia fracture OPERATION: Hardware removal left elbow SURGEON: JOANIE CEVALLOS ANESTHESIA: GA TISSUE REMOVED OR ALTERED: Hardware to CSS ESTIMATED BLOOD LOSS: Minimal PROCEDURE: With the patient in a semi-lateral decubitus position on a beanbag the left upper extremities prepped and draped in a sterile fashion. The limb is elevated for exsanguination tourniquet inflated 280 torr. Longitudinal incisions made over the proximal ulna and the olecranon. Sharp dissection was used to expose the underlying hardware. 8 screws were removed with the appropriate T8 and T 15 screwdrivers. The plate is subsequently removed. The plate bed is debrided using a rongeur. The tourniquet is deflated. Hemostasis obtained with electrocautery. The wound was closed with interrupted Vicryl followed by nylon. A sterile compressive dressing was applied and the patient' s return to PACU in satisfactory condition.
--- NOTE | 2018-04-16 12:11 | Discharge Summary ---
Discharge Summary (SDC) - Discharge Final Diagnosis: Retained hardware status post ORIF of the left Monteggia fracture Date of Surgery: 04/16/18 Discharge Date: 04/16/18 Condition: Good Treatment or Instructions: Keep left upper extremity dressing clean and dry Prescriptions: Oxycodone HCl/Acetaminophen [Percocet 5-325 mg Tablet] 1 tab PO Q6 PRN #25 tab PRN Reason: Referrals: SHAKILA RUBIN MD [Primary Care Provider] - Respiratory Treatments at Home: Deep Breathing/Coughing Discharge Activity: Balance Activity w/Rest, No tub bath Home Care Assistance: None Needed Report the Following to Your Physician Immediately: Shortness of Breath, Fever over 101 Degrees, Drainage-Foul Smelling
[2018-04-16] MEDS ORDERED: DIPHENHYDRAMINE HCL 50 MG/ML VIAL IV PRN (12:15)
[2018-04-16] MEDS ORDERED: MEPERIDINE HCL/PF INJ 25 MG/1 ML DISP.SYRIN IV PRN (12:15)
[2018-04-16] MEDS ORDERED: ONDANSETRON HCL INJ/PF 4 MG/2 ML SDV IV PRN (12:15)
[2018-04-16] MEDS ORDERED: FENTANYL CITRATE INJ/PF 100 MCG/2 ML AMPUL IV PRN ×3 (12:15)
[2018-04-16] MEDS ORDERED: PROMETHAZINE HCL INJ 25 MG/1 ML VIAL IV PRN ×2 (12:15)
[2018-04-16] MEDS ORDERED: KETOROLAC TROMETHAMINE INJ/PF 30 MG/1 ML SDV ONE (12:49)
[2018-04-16] MEDS ORDERED: ACETAMINOPHEN 1,000 MG/100 ML RTUPB IV ONE (12:49)
[2018-04-16 14:27] VITALS: BP 178/87
== END 2018-04-16 14:15 | disposition home or self-care (01) ==
LOC: OROUT 09:01
PROVIDERS: ATTEND Orthopaedic Surgery
DX: T84.84XA Pain due to internal orthopedic prosthetic devices, implants and grafts, initial encounter (principal); Y83.8 Other surgical procedures as the cause of abnormal reaction of the patient, or of later complication, without mention of misadventure at the time of the procedure; Z79.01 Long term (current) use of anticoagulants; Z79.899 Other long term (current) drug therapy; I10 Essential (primary) hypertension; M19.90 Unspecified osteoarthritis, unspecified site; E66.01 Morbid (severe) obesity due to excess calories; Z68.41 Body mass index [BMI] 40.0-44.9, adult; E11.9 Type 2 diabetes mellitus without complications; Z88.8 Allergy status to other drugs, medicaments and biological substances; Z88.1 Allergy status to other antibiotic agents; Z88.7 Allergy status to serum and vaccine; Z79.51 Long term (current) use of inhaled steroids; Z01.818 Encounter for other preprocedural examination
CPT/HCPCS: 93005; 36415; 82962; 85027; 80048; 81001; 83036; 93010; 20680; J2250; J3010; J1885; J2405; J2704; J0690; J0131; 1740

== ENCOUNTER → 2019-02-05 | Outpatient (CLI) | payer MEDICARE ==
--- NOTE | 2019-02-05 16:28 | RADIOLOGY REPORT (SQ) ---
EXAM DESCRIPTION: CT LT UPPER EXTREMITY WITHOUT COMPLETED DATE/TIME: 02/05/2019 1:36 pm REASON FOR STUDY: M25.522 PAIN IN LEFT ELBOW M25.522 PAIN IN LEFT ELBOW COMPARISON: 06/04/2017 TECHNIQUE: Axial imaging performed through the left elbow with reformatted oblique coronal and obliq ue sagittal imaging windowed for bone and soft tissues. All CT scanners at this facility use dose modulation, iterative reconstruction, and/or weight based d osing when appropriate to reduce radiation dose to as low as reasonably achievable (ALARA). [facility]: Dose Right [facility]: CareDose [facility]: Dose Right [facility]: Teradose 4D [facility]: [employer] RADIATION DOSE: CT Rad equipment meets quality standard of care and radiation dose reduction techniq ues were employed. CTDIvol: 39.8 mGy. DLP: 900 mGy-cm. mGy. LIMITATIONS: None. FINDINGS: A nonunited proximal ulna fracture is present along the proximal metaphysis. This nonunit ed fracture separates the olecranon and articular surface fragment from the remainder of the ulna, be st shown on reconstruction series 503, image 28/44 and reconstruction series 4, image 45/73. Normal alignment of the proximal ulnar fragment/olecranon with the distal humerus. No angulation at the nonunited fracture. No over riding of fracture fragments. There is a radiodense radial head prosthesis articulating with the capitellum. No lucency around the hardware worrisome for loosening. No gross elbow joint effusion. No gross intra-articular loose bodies. IMPRESSION: Nonunited proximal ulna fracture TECHNICAL DOCUMENTATION: JOB ID: [id number] Quality ID # [id number]: Final reports with documentation of one or more dose reduction techniques (e.g., Au tomated exposure control, adjustment of the mA and/or kV according to patient size, use of iterative reconstruction technique) 2010 [employer]- All Rights Reserved Reading location - IP/workstation name: [email or web address]
== END ==
LOC: RAD 13:12
PROVIDERS: ATTEND Orthopaedic Surgery
DX: S52.09 Other fracture of upper end of ulna (principal); X58.XXXD Exposure to other specified factors, subsequent encounter; M25.522 Pain in left elbow

== ENCOUNTER 2019-03-04 06:20 | Day surgery (SDC) | payer MEDICARE ==
[2019-02-25 12:18] LABS: APPEARANCE,URINE SLIGHTLY-CLOUDY; BILIRUBIN,URINE NEGATIVE (NEGATIVE); COLOR,URINE YELLOW; GLUCOSE, URINE NEGATIVE (NEGATIVE); KETONES,URINE NEGATIVE (NEGATIVE); LEUKOCYTE ESTERASE,URINE TRACE (NEGATIVE); NITRITE,URINE NEGATIVE (NEGATIVE); PROTEIN,URINE NEGATIVE (NEGATIVE); URINE SPECIFIC GRAVITY 1.023; UROBILINOGEN,URINE NEGATIVE mg/dL (<2.0)
[2019-02-25 12:32] LABS: HEMATOCRIT 37.3 % (36.0-47.0); HEMOGLOBIN 12.1 g/dL (12.0-15.5); MEAN CORPUSCULAR HEMOGLOBIN 28.7 pg (27.0-33.4); MEAN CORPUSCULAR HGB CONC 32.5 g/dL (32.0-36.0); MEAN CORPUSCULAR VOLUME 88 fl (80-97); PLATELET COUNT 297 10^3/uL (150-450); RED BLOOD COUNT 4.23 10^6/uL (3.72-5.28); RED CELL DISTRIBUTION WIDTH 14.4 % (11.5-14.0); WHITE BLOOD COUNT 7.1 10^3/uL (4.0-10.5)
[2019-02-25 13:04] LABS: ANION GAP 8 (5-19); BLOOD UREA NITROGEN 17 mg/dL (7-20); CALCIUM 9.8 mg/dL (8.4-10.2); CARBON DIOXIDE 26 mmol/L (22-30); CHLORIDE 107 mmol/L (98-107); GLUCOSE 86 mg/dL (75-110); POTASSIUM 4.9 mmol/L (3.6-5.0)
--- NOTE | 2019-02-25 19:01 | EKG REPORT ---
SEVERITY:- OTHERWISE NORMAL ECG - SINUS RHYTHM : Confirmed by: Helene Royal MD 25-Feb-2019 19:00:25
[~2019-03-04 06:20] MED LIST changes: -CEFAZOLIN 2 GM/D5W RTU 2 GM/50 ML RTUPB IV PRN; +CEFAZOLIN SODIUM 2 GM in DEXTROSE 5%-WATER 100 ML IV PRN
[2019-03-04] MEDS ORDERED: FENTANYL CITRATE INJ/PF 100 MCG/2 ML AMPUL ONE (08:36)
[2019-03-04] MEDS ORDERED: PROPOFOL INJ 200 MG/20 ML VIAL IV ONE (08:36)
[2019-03-04] MEDS ORDERED: MIDAZOLAM 2 MG/2 ML INJ ONE (08:36)
[2019-03-04] MEDS ORDERED: MEPERIDINE HCL/PF INJ 25 MG/1 ML DISP.SYRIN IV PRN (09:36)
[2019-03-04] MEDS ORDERED: FENTANYL CITRATE INJ/PF 100 MCG/2 ML AMPUL IV PRN ×3 (09:36)
[2019-03-04] MEDS ORDERED: PROMETHAZINE HCL INJ 25 MG/1 ML VIAL IV PRN ×2 (09:36)
[2019-03-04] MEDS ORDERED: DIPHENHYDRAMINE HCL 50 MG/ML VIAL IV PRN (09:36)
[2019-03-04] MEDS ORDERED: HYDROMORPHONE HCL INJ/PF 2 MG/ML AMPULE IV PRN (09:37)
--- NOTE | 2019-03-04 10:11 | Discharge Summary ---
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 Prescriptions: Hydrocodone/Acetaminophen [Vicodin 5-300 mg Tablet] 1 each PO Q6 PRN #40 tablet PRN Reason: Referrals: SHAKILA RUBIN MD [Primary Care Provider] - Discharge Diet: Regular Respiratory Treatments at Home: Deep Breathing/Coughing Discharge Activity: Balance Activity w/Rest, No tub bath Home Care Assistance: None Needed Report the Following to Your Physician Immediately: Shortness of Breath, Fever over 101 Degrees, Drainage-Foul Smelling
--- NOTE | 2019-03-04 10:14 | Operative Report ---
Operative Report DATE OF SURGERY: 03/04/19 PREOPERATIVE DIAGNOSIS: Nonunion left Monteggia fracture OPERATION: Takedown of nonunion, repeat ORIF left proximal ulna with V toss bone graft SURGEON: JOANIE CEVALLOS ANESTHESIA: GA TISSUE REMOVED OR ALTERED: Tissue to microbiology ESTIMATED BLOOD LOSS: Minimal PROCEDURE: With the patient in a right lateral decubitus position on the operating table the right upper extremities prepped and draped in sterile fashion. The limb is elevated for exsanguination tourniquet inflated 280 torr. A longitudinal incision was made in line with the previous posterior approach to the olecranon. Sharp dissection was carried incision down through the periosteum. The nonunion is easily visible. Its debrided using a rondure. Next a 6 hole titanium Liban olecranon plate is applied to the proximal fragment and secured with 3 screws. The nonunion site is then packed with a V toss bone substitute. The plate is then applied to the distal fragment and secured with 2 compression screws. A proximal locking screw was placed from the posterior aspect olecranon down to the metadiaphysis of the ulna. The remaining screws were filled and using locking screws. The fracture position and the hardware checked fluoroscopically and felt to be adequate. The elbow is examined functionally and demonstrates a passive range of motion of 30 to 130 degrees. The patient lacks approximately 30 degrees of supination with full pronation. The tourniquet is deflated. Hemostasis obtained with electrocautery. The wound is irrigated with bulb lavage. Is closed with interrupted Vicryl followed by nylon. A sterile compressive dressing was applied and the patient's return to the PACU in satisfactory condition.
[2019-03-04] MEDS ORDERED: HYDROMORPHONE HCL INJ/PF 2 MG/ML AMPULE ONE (10:36)
[2019-03-04] MEDS ORDERED: HYDROCODONE/ACETAMINOPHEN 5-325 MG TABLET PO PRN (10:44)
[2019-03-04] MEDS ORDERED: HYDROCODONE/ACETAMINOPHEN 5-325 MG TABLET ONE (11:23)
--- NOTE | 2019-03-04 11:33 | RADIOLOGY REPORT (SQ) ---
EXAM DESCRIPTION: NO CHG FLUORO; ELBOW LEFT AP/LATERAL COMPLETED DATE/TIME: 03/04/2019 11:12 am REASON FOR STUDY: ORIF LEFT ELBOW ASST WITH FLUORO IN OR S52.272S MONTEGGIA'S FRACTURE OF LEFT ULNA , SEQUELA Z79.899 OTHER SNF (CURRENT) DRUG THERAPY FLUOROSCOPY TIME: 0.3 minutes 2 Images saved to PACS TECHNIQUE: Intra-operative images acquired during surgical procedure to evaluate progress. NUMBER OF IMAGES: 2 LIMITATIONS: None. FINDINGS: Intraoperative fluoroscopic images obtained to evaluate progress. Evidence of radial head hardware and ulna plate and screw fixation hardware. Please see operative report for detailed descr iption. IMPRESSION: IMAGE(S) OBTAINED DURING PROCEDURE. COMMENT: Quality ID [id number]: Final reports for procedures using fluoroscopy that document radiation exp osure indices, or exposure time and number of fluorographic images (if radiation exposure indices are not available) Please consult full operative report of the attending physician for description of the procedure. TECHNICAL DOCUMENTATION: JOB ID: [id number] [employer]- All Rights Reserved COMPARISON: None. 02/05/2019 Reading location - IP/workstation name: [email or web address]
--- NOTE | 2019-03-04 11:33 | RADIOLOGY REPORT (SQ) ---
EXAM DESCRIPTION: NO CHG FLUORO; ELBOW LEFT AP/LATERAL COMPLETED DATE/TIME: 03/04/2019 11:12 am REASON FOR STUDY: ORIF LEFT ELBOW ASST WITH FLUORO IN OR S52.272S MONTEGGIA'S FRACTURE OF LEFT ULNA , SEQUELA Z79.899 OTHER INTERMEDIATE (CURRENT) DRUG THERAPY FLUOROSCOPY TIME: 0.3 minutes 2 Images saved to PACS TECHNIQUE: Intra-operative images acquired during surgical procedure to evaluate progress. NUMBER OF IMAGES: 2 LIMITATIONS: None. FINDINGS: Intraoperative fluoroscopic images obtained to evaluate progress. Evidence of radial head hardware and ulna plate and screw fixation hardware. Please see operative report for detailed descr iption. IMPRESSION: IMAGE(S) OBTAINED DURING PROCEDURE. COMMENT: Quality ID [id number]: Final reports for procedures using fluoroscopy that document radiation exp osure indices, or exposure time and number of fluorographic images (if radiation exposure indices are not available) Please consult full operative report of the attending physician for description of the procedure. TECHNICAL DOCUMENTATION: JOB ID: [id number] [employer]- All Rights Reserved COMPARISON: None. 02/05/2019 Reading location - IP/workstation name: [email or web address]
[2019-03-04] MEDS ORDERED: EPHEDRINE SULFATE INJ 50 MG/1 ML AMPULE ONE (11:41)
[2019-03-04] MEDS ORDERED: OXYCODONE-ACETAMINOPHEN 5-325 MG TABLET ONE (12:04)
[2019-03-04] MEDS ORDERED: SUCCINYLCHOLINE CHLORIDE INJ 200 MG/10 ML VIAL ONE (14:09)
[2019-03-04] MEDS ORDERED: ONDANSETRON HCL INJ/PF 4 MG/2 ML SDV ONE (14:09)
[2019-03-04] MEDS ORDERED: LIDOCAINE 2% INJ-PF (20 MG/ML) 2 ML AMPUL ONE (14:09)
[2019-03-04 14:29] VITALS: BP 159/68
== END 2019-03-04 13:05 | disposition home or self-care (01) ==
LOC: OROUT 06:20
PROVIDERS: ATTEND Orthopaedic Surgery
DX: S52.272 Monteggia's fracture of left ulna (principal); X58.XXXD Exposure to other specified factors, subsequent encounter; M25.522 Pain in left elbow; E11.9 Type 2 diabetes mellitus without complications; I10 Essential (primary) hypertension; Z79.899 Other long term (current) drug therapy; Z79.51 Long term (current) use of inhaled steroids; Z87.891 Personal history of nicotine dependence
CPT/HCPCS: 93005; 36415; 87070; 87205; 82962; 85027; 87075; 80048; 81001; 73070; 93010; 25405; C1713 ×8; J2250; J0690; J3490 ×2; J3010; A9270; J1170; J0330; J2405; J7060; J2704; 01740

== ENCOUNTER 2019-10-22 13:48 | Emergency (ER) | payer MEDICARE ==
[2019-10-22] MEDS ORDERED: IPRATROPIUM/ALBUTEROL 0.5-2.5 MG/3 ML AMPUL NEB ONE (15:11)
--- NOTE | 2019-10-22 15:11 | ER Document Report ---
ED Respiratory Problem - General Chief Complaint: Cough Stated Complaint: FEVER,COUGH Time Seen by Provider: 10/22/19 14:33 Primary Care Provider: SHAKILA RUBIN MD [Primary Care Provider] - Follow up as needed Mode of Arrival: Ambulatory Information source: Patient Notes: 74-year-old female past medical history significant for hypertension and psoriasis presents to the emergency room stating that she woke up today with a cough some wheezing shortness of breath and a fever of 101. States she took Tylenol for her fever. Denies any nausea, no vomiting, no chest pain, no recent travel. No COVID-19 exposure. History of recurrent pneumonia and bronchitis. No known ill contacts. TRAVEL OUTSIDE OF THE [place] IN LAST 30 DAYS: No - Related Data Allergies/Adverse Reactions: amoxicillin [Amoxicillin] Allergy (Intermediate, Verified 03/04/19 06:32) nausea and vomiting iodine [Iodine] Allergy (Mild, Verified 03/04/19 06:32) rash Sulfa (Sulfonamide Antibiotics) Allergy (Mild, Verified 03/04/19 06:32) rash amlodipine besylate [From Norvasc] Allergy (Verified 03/04/19 06:32) unsure cefadroxil hydrate [From Duricef] Allergy (Verified 03/04/19 06:32) unsure doxycycline calcium [From Vibramycin] Allergy (Verified 03/04/19 06:32) unsure doxycycline hyclate [From Vibramycin] Allergy (Verified 03/04/19 06:32) unsure doxycycline monohydrate [From Vibramycin] Allergy (Verified 03/04/19 06:32) unsure hydrochlorothiazide [Hydrochlorothiazide] Allergy (Verified 03/04/19 06:32) unsure morphine [Morphine] Allergy (Verified 03/04/19 06:32) shellfish derived Allergy (Verified 03/04/19 06:32) Unknown reaction triamterene [From Dyazide] Allergy (Verified 03/04/19 06:32) unsure Past Medical History - General Information source: Patient - Social History Smoking Status: Never Smoker Frequency of alcohol use: None Drug Abuse: None Family History: Reviewed & Not Pertinent Patient has homicidal ideation: No - Past Medical History Cardiac Medical History: Reports: Hx Hypertension - MED CONTROLLED Denies: Hx Coronary Artery Disease, Hx Heart Attack Pulmonary Medical History: Denies: Hx Asthma, Hx Bronchitis, Hx COPD, Hx Pneumonia Neurological Medical History: Denies: Hx Cerebrovascular Accident, Hx Seizures Endocrine Medical History: Denies: Hx Diabetes Mellitus Type 2 - Prediabetic Renal/ Medical History: Denies: Hx Peritoneal Dialysis GI Medical History: Denies: Hx Hepatitis, Hx Hiatal Hernia, Hx Ulcer Musculoskeletal Medical History: Reports Hx Arthritis Skin Medical History: Reports Hx Psoriasis Psychiatric Medical History: Denies: Hx Depression Infectious Medical History: Denies: Hx Hepatitis Past Surgical History: Reports: Hx Hysterectomy. Denies: Hx Mastectomy, Hx Open Heart Surgery, Hx Pacemaker - Immunizations Hx Diphtheria, Pertussis, Tetanus Vaccination: No Hx Pneumococcal Vaccination: 03/06/17 Review of Systems - Review of Systems Constitutional: Fever EENT: No symptoms reported Cardiovascular: denies: Chest pain Respiratory: Cough, Short of breath, Wheezing Gastrointestinal: No symptoms reported Musculoskeletal: No symptoms reported Neurological/Psychological: No symptoms reported -: Yes All other systems reviewed and negative Physical Exam - Vital signs Vitals: Temp Pulse Resp BP Pulse Ox 98.6 F 96 24 H 102/47 L 94 10/22/19 14:25 10/22/19 14:25 10/22/19 14:25 10/22/19 14:25 10/22/19 14:25 - Notes Notes: VITAL SIGNS: Within normal limits. GENERAL: Mild acute distress, non-toxic appearance. HEAD: Normal with no signs of head trauma. EYES: PERRLA, EOMI, conjunctiva normal, no discharge. EARS: Hearing grossly intact. NOSE: Normal. THROAT: Oropharynx is normal. NECK: Normal range of motion, no tenderness, supple, no lymphadenopathy, No adenopathy, no JVD. CHEST: Clear breath sounds bilaterally. Expiratory wheezes without rales or rhonchi. CARDIAC: Regular rate and rhythm. S1 and S2, without murmurs, gallops, or rubs. VASCULAR: No Edema. Peripheral pulses normal and equal in all extremities. ABDOMEN: Normal and soft with no tenderness, no masses or pulsatile masses. GASTROINTESTINAL: Bowel sounds normal GENITOURINARY: Normal, No tenderness LYMPATHTIC: No lymphadenopathy noted. MUSCULOSKELETAL: Good range of motion of all major joints. Extremities without clubbing, cyanosis or edema. NEUROLOGICAL: Alert and oriented x 3. No focal sensory or strength deficits. Speech normal. Follows commands appropriately. PSYCHIATRIC: Normal Affect, judgement and mood. SKIN: Normal appearance with no rashes or lesions. Course - Re-evaluation Re-evalutation: 10/22/19 16:37 Patient is resting comfortably she is afebrile, nontoxic-appearing, wheezing has improved. Reviewed all test results with patient. Discussed COVID-19 testing with patient. Do not feel that she meets criteria however test was offered secondary to symptoms and age. Patient refused COVID-19 testing. Counseled to use inhaler as prescribed. Outpatient follow-up with her primary care physician for recheck in 2 days. Tylenol and/or Motrin for fevers. Patient was given strict return to the emergency room guidelines. Return for any new or worsening symptoms. All questions were answered. Patient verbalized understanding and agrees with plan of care. Prior to discharge patient's family called and requested that patient be tested for COVID-19. Discussed with son that COVID-19 testing was offered and that patient refused he is insistent that she get tested. Told the patient it was her decision. 10/22/19 18:40 - Vital Signs Vital signs: Temp Pulse Resp BP Pulse Ox 98.9 F 90 16 109/79 94 10/22/19 17:10 10/22/19 17:10 10/22/19 17:10 10/22/19 17:10 10/22/19 17:10 - Laboratory Result Diagrams: 10/22/19 15:26 10/22/19 15:26 Laboratory results interpreted by me: 10/22/19 10/22/19 15:26 15:26 WBC 13.0 H Hgb 11.8 L MCHC 31.8 L RDW 15.2 H Lymph % (Auto) 11.4 L Absolute Neuts (auto) 10.4 H Seg Neutrophils % 80.0 H Anion Gap 3 L Est GFR ( Amer) 58 L Est GFR (MDRD) Non-Af 48 L Glucose 119 H Total Protein 6.1 L - Diagnostic Test Radiology reviewed: Reports reviewed - EKG Interpretation by Me Additional EKG results interpreted by me: 10/22/19 16:37 EKG was interpreted by ER physician Dr. Canales Normal sinus rhythm No acute STEMI Discharge - Discharge Clinical Impression: Acute bronchitis Qualifiers: Bronchitis organism: unspecified organism Qualified Code(s): J20.9 - Acute bronchitis, unspecified Condition: Stable Disposition: HOME, SELF-CARE Instructions: Bronchitis With Bronchospasm (Wheezing) ([facility]) Additional Instructions: You were seen for symptoms most consistent with bronchitis. This can take up to 12 weeks to fully resolve. This is generally due to a viral infection. Please follow-up with your primary doctor in the next 2-3 days. Return if you develop worsening cough, vomiting, fever >100.4, pass out, begin coughing blood, or have any other symptoms that are concerning to you. Please use the medications prescribed today as directed. Use inhaler as prescribed Prescriptions: Albuterol Sulfate [Proair HFA Inhalation Aerosol 8.5 gm MDI] 2 puff IH Q4H PRN #1 mdi PRN Reason: Referrals: SHAKILA RUBIN MD [Primary Care Provider] - Follow up as needed
[2019-10-22 15:42] LABS: ABSOLUTE EOSINOPHILS # (AUTO) 0.1 10^3/uL (0.0-0.6); ABSOLUTE LYMPHOCYTES (AUTO) 1.5 10^3/uL (0.5-4.7); ABSOLUTE NEUT (AUTO) 10.4 10^3/uL (1.7-8.2); BASOPHILS % (AUTO) 0.2 % (0-2); EOSINOPHILS % (AUTO) 0.6 % (0-6); HEMOGLOBIN 11.8 g/dL (12.0-15.5); LYMPHOCYTES % (AUTO) 11.4 % (13-45); MEAN CORPUSCULAR HEMOGLOBIN 28.1 pg (27.0-33.4); MEAN CORPUSCULAR HGB CONC 31.8 g/dL (32.0-36.0); MEAN CORPUSCULAR VOLUME 88 fl (80-97); MONOCYTES % (AUTO) 7.8 % (3-13); PLATELET COUNT 308 10^3/uL (150-450); RED BLOOD COUNT 4.19 10^6/uL (3.72-5.28); RED CELL DISTRIBUTION WIDTH 15.2 % (11.5-14.0); TOTAL CELLS COUNTED % (AUTO) 100 %
[2019-10-22 15:58] LABS: ALBUMIN 3.5 g/dL (3.5-5.0); ALKALINE PHOSPHATASE 93 U/L (38-126); ASPARTATE AMINO TRANSFERASE 17 U/L (14-36); BILIRUBIN,TOTAL 0.5 mg/dL (0.2-1.3); BLOOD UREA NITROGEN 20 mg/dL (7-20); CALCIUM 9.5 mg/dL (8.4-10.2); GLUCOSE 119 mg/dL (75-110); POTASSIUM 4.5 mmol/L (3.6-5.0); TOTAL PROTEIN 6.1 g/dL (6.3-8.2)
[2019-10-22 16:03] LABS: CARBON DIOXIDE 28 mmol/L (22-30); CHLORIDE 107 mmol/L (98-107)
[2019-10-22 16:07] LABS: ANION GAP 3 (5-19)
--- NOTE | 2019-10-22 16:15 | RADIOLOGY REPORT (SQ) ---
EXAM DESCRIPTION: CHEST SINGLE VIEW IMAGES COMPLETED DATE/TIME: 10/22/2019 4:06 pm REASON FOR STUDY: cough COMPARISON: None. EXAM PARAMETERS: NUMBER OF VIEWS: One view. TECHNIQUE: Single frontal radiographic view of the chest acquired. RADIATION DOSE: NA LIMITATIONS: None. FINDINGS: LUNGS AND PLEURA: No opacities, masses or pneumothorax. No pleural effusion. MEDIASTINUM AND HILAR STRUCTURES: No masses. Contour normal. HEART AND VASCULAR STRUCTURES: Heart normal in size. Normal vasculature. BONES: No acute findings. HARDWARE: None in the chest. OTHER: No other significant finding. IMPRESSION: NO ACUTE RADIOGRAPHIC FINDING IN THE CHEST. TECHNICAL DOCUMENTATION: JOB ID: [id number] 2010 [employer]- All Rights Reserved Reading location - IP/workstation name: [email or web address]
[2019-10-22 17:13] VITALS: BP 109/79
--- NOTE | 2019-10-22 18:44 | EKG REPORT ---
SEVERITY:- NORMAL ECG - SINUS RHYTHM : Confirmed by: Jayce Cordova MD 22-Oct-2019 18:43:42
== END 2019-10-22 17:13 | disposition home or self-care (01) ==
LOC: ER 13:48
DX: J20.9 Acute bronchitis, unspecified (principal); R06.02 Shortness of breath; R06.2 Wheezing; R50.9 Fever, unspecified; R05 Cough; I10 Essential (primary) hypertension; Z88.0 Allergy status to penicillin; Z88.2 Allergy status to sulfonamides; Z88.8 Allergy status to other drugs, medicaments and biological substances; Z88.1 Allergy status to other antibiotic agents; Z88.6 Allergy status to analgesic agent; Z88.5 Allergy status to narcotic agent; Z91.013 Allergy to seafood
CPT/HCPCS: 93005; 94640; 99284; 36415; 85025; 80053; 84484; 71045; 93010; A9270; J7620

== ENCOUNTER → 2019-10-26 | Outpatient (CLI) | payer MEDICARE ==
[2019-10-26 10:10] VITALS: BP 126/58
--- NOTE | 2019-10-26 10:10 | ER [facility] ASSESSMENT REPORT ---
Intake - In the Last 14 days Have you traveled outside [place]?: No Have you been in close contact with someone CONFIRMED: No Worked in Healthcare?: No - Symptoms Subjective Fever(Vilas feverish): Yes Chills: Yes Muscule Aches: Yes Runny Nose: No Sore Throat: No Cough (New or worsening chronic cough): Yes Shortness of breath: Yes Nausea or Vomiting: No Headache: Yes Abdominal Pain: No Diarrhea(3 or more loose stools in last 24 hours): No - Do you have any of the following Chronic lung disease: Asthma or emphysema or COPD: No Cystic Fibrosis: No Diabetes: No High Blood Pressure: Yes Cardiovascular Disease: No Chronic Kidney Disease: No Chronic Liver Disease: No Chronic blood disorder like Sickle Cell Disease: No Weak immune system due to disease or medication: No Neurologic condition that limits movement: No Developmental delay - Moderate to Severe: No Recent (within past 2 weeks) or current : No Morbid Obesity (>100 pounds over ideal weight): No - Objective Temperature: 97.7 F Pulse Rate: 70 Respiratory Rate: 18 Blood Pressure: 126/58 O2 Sat by Pulse Oximetry: 95 Objective: Given above, testing performed: If Testing Performed: Test Specimen Type Sent to General - General Information source: Patient Notes: Patient presents to the [facility] for screening for the coronavirus. Patient reports symptoms for the past 4 days. Patient states she is currently being treated for bronchitis. Patient complains of fever of 101 at home chills, body aches, cough shortness of breath and headache. 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 - HPI Associated symptoms: Chills, Nonproductive cough, Fever, Headache, Shortness of breath Exacerbated by: Denies Relieved by: Denies Recently seen / treated by doctor: Yes - Related Data Allergies/Adverse Reactions: amoxicillin [Amoxicillin] Allergy (Intermediate, Verified 03/04/19 06:32) nausea and vomiting iodine [Iodine] Allergy (Mild, Verified 03/04/19 06:32) rash Sulfa (Sulfonamide Antibiotics) Allergy (Mild, Verified 03/04/19 06:32) rash amlodipine besylate [From Norvasc] Allergy (Verified 03/04/19 06:32) unsure cefadroxil hydrate [From Duricef] Allergy (Verified 03/04/19 06:32) unsure doxycycline calcium [From Vibramycin] Allergy (Verified 03/04/19 06:32) unsure doxycycline hyclate [From Vibramycin] Allergy (Verified 03/04/19 06:32) unsure doxycycline monohydrate [From Vibramycin] Allergy (Verified 03/04/19 06:32) unsure hydrochlorothiazide [Hydrochlorothiazide] Allergy (Verified 03/04/19 06:32) unsure morphine [Morphine] Allergy (Verified 03/04/19 06:32) shellfish derived Allergy (Verified 03/04/19 06:32) Unknown reaction triamterene [From Dyazide] Allergy (Verified 03/04/19 06:32) unsure Past Medical History - General Information source: Patient - Social History Smoking Status: Former Smoker Drug Abuse: None Family History: Reviewed & Not Pertinent - Past Medical History Cardiac Medical History: Reports: Hx Hypertension - MED CONTROLLED Denies: Hx Coronary Artery Disease, Hx Heart Attack Pulmonary Medical History: Denies: Hx Asthma, Hx Bronchitis, Hx COPD, Hx Pneumonia Neurological Medical History: Denies: Hx Cerebrovascular Accident, Hx Seizures Endocrine Medical History: Denies: Hx Diabetes Mellitus Type 2 - Prediabetic Renal/ Medical History: Denies: Hx Peritoneal Dialysis GI Medical History: Denies: Hx Hepatitis, Hx Hiatal Hernia, Hx Ulcer Musculoskeletal Medical History: Reports Hx Arthritis Skin Medical History: Reports Hx Psoriasis Psychiatric Medical History: Denies: Hx Depression Infectious Medical History: Denies: Hx Hepatitis Past Surgical History: Reports: Hx Hysterectomy. Denies: Hx Mastectomy, Hx Open Heart Surgery, Hx Pacemaker Physical Exam - Notes Notes: Full physical exam could not be performed due to covid 19 isolation protocols. Constitutional: Nontoxic appearance, no acute distress Eyes: Nonicteric, extraocular movements intact, sclera clear Cardiovascular: Rate and rhythm regular, no JVD Respiratory: Breath sounds clear bilaterally, nonlabored breathing, no use of accessory muscles, no tachypnea Gastrointestinal: Abdomen not distended Muculoskeletal: Moves all extremities well Skin: Normal color Neuro: Awake alert oriented, normal speech Psych: Normal mood and affect Diagnostic Results Laboratory Results: The patient was evaluated during the global Covid 19 pandemic, and that diagnosis was suspected/considered upon their initial presentation. Their evaluation, treatment and testing was consistent with current guidelines for patients who present with complaints or symptoms that may be related to Covid 19. Patient presents with upper respiratory symptoms worrisome for possible Covid 19. Patient does not have emergency worrying symptoms such as difficulty breathing, shortness of breath, chest pain, pressure, confusion or cyanosis. Patient appears suitable for discharge as vital signs are stable and patient is nontoxic in appearance. Good return precautions have been discussed with patient, patient verbalized understanding and is agreeable with discharge plan of care at this time. Patient Education/Counseling Counseling/Education: Patient was provided with discharge information including: As a person under investigation for Covid 19, the [facility], division of public health advises you to adhere to the following guidance until your test results are reported to you. If your test result is positive, you will receive additional information from your provider and your local health department at that time. Remain at home until you are cleared by the health provider or public health authorities. Keep a log of visitors to your home, notify any visitors to your home of your isolation status. If you plan to move to a new address or leave the [facility], notify the local health department in your County. Call your doctor or seek care if you have an urgent medical need. Before seeking medical care, call ahead to get instructions from the provider before arriving at the medical office clinic or hospital. Notify them that you are being tested for the virus that causes Covid 19 so that arrangements can be m humberto, as necessary, to prevent transmission to others in the healthcare setting. Next, notify the local health department in your county. If a medical emergency arises and you need to call 911, inform the first responders that you are being tested for the virus that causes Covid 19. Next, notify the local health department in your [facility]. [facility] Discharge - Discharge Clinical Impression: Encounter for screening laboratory testing for COVID-19 virus Condition: Stable Disposition: Home; Selfcare
[2019-10-26 11:22] LABS: A TYPE INFLUENZA AG NEGATIVE (NEGATIVE); B INFLUENZA AG NEGATIVE (NEGATIVE)
== END ==
LOC: RDC 09:17
PROVIDERS: ATTEND Nurse Practitioner Family
DX: Z20.828 Contact with and (suspected) exposure to other viral communicable diseases (principal); J40 Bronchitis, not specified as acute or chronic; R50.9 Fever, unspecified; R05 Cough; R06.02 Shortness of breath; M79.10 Myalgia, unspecified site; R51 Headache; I10 Essential (primary) hypertension; L40.1 Generalized pustular psoriasis; Z87.891 Personal history of nicotine dependence; Z88.1 Allergy status to other antibiotic agents; Z88.6 Allergy status to analgesic agent; Z88.8 Allergy status to other drugs, medicaments and biological substances; Z91.013 Allergy to seafood
CPT/HCPCS: 87804; U0003; C9803; 87635; 99201; 99211